=== PATIENT | male | born 1980 | race Two or more races ===

== ENCOUNTER 2017-03-22 19:34 | Emergency (ER) | payer OTHER ==
[~2017-03-22] VITALS: Ht 182.9 cm; Wt 81.6 kg
[2017-03-22] MEDS ORDERED: NKM (19:58)
[2017-03-22 20:00] VITALS: BP 123/86
[2017-03-22] MEDS ORDERED: NS Irrig 1000ml 1,000 ML IRRIG ONE (20:00)
[2017-03-22] MEDS ORDERED: Fluorescein Strips LEFT EYE ONE (20:00)
[2017-03-22] MEDS ORDERED: Proparacaine 0.5% Opth Soln 15ml LEFT EYE ONE (20:00)
[2017-03-22] MEDS ORDERED: Morgan Lens TOPIC ONE (20:00)
[2017-03-22] MEDS ORDERED: TRAMADOL HCL50 MG ORAL (21:10)
[2017-03-22] MEDS ORDERED: OCUFLOX5 ML OP (21:10)
[2017-03-22] MEDS ORDERED: Norco 5mg/325mg tab ORAL ONE (21:15)
[2017-03-22 21:25] VITALS: BP 129/81
--- NOTE | 2017-03-22 22:22 | Emergency Room Report ---
History of Present Illness General Chief Complaint: Eye Problems Source: Patient Present Illness HPI The patient is a 36-year-old male presenting for left eye pain. He states that he was at work using a wood saw and felt a piece of wood fly into the left eye. He felt immediate pain which has continued and is now 10 out of 10 burning sensation. Does not radiate from the left eye. He states that he was not wearing any safety glasses. He denies blurred vision. He denies any other symptoms including N, V, F, dizziness Allergies: Coded Allergies: No Known Allergies (Unverified , 03/22/17) Patient History Past Medical History: see triage record Pertinent Family History: none Reviewed Nursing Documentation: PMH: Agreed, PSxH: Agreed Nursing Documentation-PMH Past Medical History: No Stated History Review of Systems All Other Systems: negative except mentioned in HPI Physical Exam Vital Signs Date Time Temp Pulse Resp B/P (MAP) Pulse Ox O2 Delivery O2 Flow Rate FiO2 03/22/17 19:54 97.5 49 16 123/86 99 Room Air Sp02 EP Interpretation: reviewed, normal General Appearance: no apparent distress, alert, GCS 15, non-toxic Head: normocephalic, atraumatic Eyes: left eye fluoroscene uptake - none, left eye photophobia, left eye Scleral Injection, bilateral eye PERRL, bilateral eye EOMI ENT: hearing grossly normal, normal pharynx, no angioedema, normal voice Neck: full range of motion, supple/symm/no masses Neurologic: alert, oriented x3, responsive, motor strength/tone normal, sensory intact, speech normal Psychiatric: judgement/insight normal, memory normal, mood/affect normal, no suicidal/homicidal ideation Skin: normal color, no rash, warm/dry, well hydrated Medical Decision Making PA Attestation Dr. Mcnally is my supervising physician. Patient management was discussed with my supervising physician Diagnostic Impression: Primary Impression: Eye foreign body Qualified Codes: T15.92XA - Foreign body on external eye, part unspecified, left eye, initial encounter ER Course The patient is a 36-year-old male presenting for left eye pain. Differential diagnoses considered but not limited to allergic conjunctivitis, bacterial conjunctivitis, corneal abrasion, globe injury, viral conjunctivitis PE: Vitals WNL. HEENT: L eye injection with tearing. PERRL. EOMI Proparacaine applied and then reddy lens applied with NS irrigation. The patient is feeling better. Tearing from the left eye has ceased Proparacaine was applied to the affected eye and then fluorescene strip was applied to bottom internal eyelid. UV light was used to assess for increased uptake. None was found Pt will be given prescription for Ocuflox and He is to follow up with ophthalmology. He agrees. ER precautions are given Last Vital Signs Date Time Temp Pulse Resp B/P (MAP) Pulse Ox O2 Delivery O2 Flow Rate FiO2 03/22/17 19:54 97.5 49 16 123/86 99 Room Air Status: improved Disposition: HOME, SELF-CARE Condition: Improved Scripts Tramadol Hcl* (ULTRAM*) 50 Mg Tablet 50 MG ORAL Q6H Y for For Pain, #10 TAB 0 Refills Prov: SAL ZHENG 03/22/17 Ofloxacin (OCUFLOX) 5 Ml Drops 1 DROP OP Q4HR, #5 ML Prov: SAL ZHENG 03/22/17 Referrals: NON PHYSICIAN (PCP) Patient Instructions: Eye Foreign Body Additional Instructions: I discussed my findings with the patient. All questions and concerns have been answered. Treatment and medication compliance have been addressed. I advised the patient that they need to follow up with [facility] as soon as possible. Return to ED if symptoms worsen, new symptoms arise, or if needed for any reason. Patient verbalized understanding of discharge instructions. SAL ZHENG Mar 22, 2017 22:22
== END 2017-03-22 21:25 | disposition home or self-care (01) ==
LOC: EMR 19:55
DX: T15.92XA Foreign body on external eye, part unspecified, left eye, initial encounter (principal); X58.XXXA Exposure to other specified factors, initial encounter; Y93.9 Activity, unspecified; Y92.9 Unspecified place or not applicable
CPT/HCPCS: 65205; 99284